=== PATIENT | male | born 1980 | race Caucasian/White ===

== ENCOUNTER 2018-05-06 20:34 | Emergency (ER) | payer MEDICAID ==
[~2018-05-06] VITALS: Ht 175.3 cm; Wt 72.7 kg
[2018-05-06 20:37] VITALS: BP 148/88
== END 2018-05-07 02:30 | disposition left against medical advice (07) ==
LOC: ER 20:49
DX: R51 Headache (principal); R42 Dizziness and giddiness; Z53.21 Procedure and treatment not carried out due to patient leaving prior to being seen by health care provider